=== PATIENT | female | born 1995 | race African-American/Black ===

== ENCOUNTER 2020-11-17 19:31 | Inpatient (IN) | payer BC ==
[~2020-11-17] VITALS: Ht 160 cm; Wt 98.0 kg
[2020-11-17] MEDS ORDERED: LIDOCAINE HCL 1% 20ML VIAL (Pyxis) INJ INFIL SCH (20:00)
[2020-11-17] MEDS ORDERED: MISOPROSTOL 100MCG TABLET VG SCH (20:00)
[2020-11-17] MEDS ORDERED: METHYLERGONOVINE MALEATE 0.2 MG/ML IM PRN (20:00)
[2020-11-17] MEDS ORDERED: BUTORPHANOL TARTRATE 2 MG/ML VIAL IM PRN (23:15)
[2020-11-17] MEDS: LACTATED RINGERS 1,000 ML IV SCH (23:18)
[2020-11-17] MEDS: DEXT 5%/LR + PITOCIN 20UNITS/L 1,000 ML IV SCH (23:31)
[2020-11-17 23:38] LABS: CLARITY URINE CLEAR (CLEAR); COLOR URINE YELLOW (YELLOW); KETONES URINE TRACE (NEGATIVE); LEUKOCYTE ESTERASE URINE 1+ (NEGATIVE); NITRITE URINE NEGATIVE (NEGATIVE); OCCULT BLOOD URINE NEGATIVE (NEGATIVE); PROTEIN URINE TRACE (NEGATIVE); SPECIFIC GRAVITY URINE 1.023 (1.005-1.030)
[2020-11-17 23:39] LABS: BASOPHILS % 0.7 % (0.0-2.0); EOSINOPHILS % 2.1 % (0.0-5.0); HEMOGLOBIN. 12.4 g/dL (12.0-16.0); LYMPHOCYTES % 21.2 % (20.0-50.0); MEAN CORPUSCULAR HEMOGLOBIN 26.4 pg (28.0-32.0); MEAN CORPUSCULAR VOLUME 80.9 fL (81.0-99.0); MEAN PLATELET VOLUME 7.9 fl (7.4-10.4); MONOCYTES % 7.1 % (2.0-8.0); NEUTROPHILS % 68.9 % (40.0-76.0); PLATELET 350 x1000/uL (130-400); RED BLOOD CELL COUNT 4.69 mill/uL (4.2-5.4); RED CELL DISTRIBUTION WIDTH 15.9 % (11.6-14.6)
[2020-11-17 23:48] LABS: INR 0.9; PARTIAL THROMBOPLASTIN TIME 30.4 sec (23.4-31.0); PROTHROMBIN TIME 9.6 sec (9.6-11.0)
[2020-11-18 00:04] LABS: METHADONE URINE SCREEN NEGATIVE (NEGATIVE)
[2020-11-18 00:06] LABS: *AMPHETAMINES SCREEN URINE NEGATIVE (NEGATIVE); *BARBITURATES SCREEN URINE NEGATIVE (NEGATIVE); *BENZODIAZEPINES SCREEN URINE NEGATIVE (NEGATIVE); *COCAINE SCREEN URINE NEGATIVE (NEGATIVE); CANNABINOID URINE SCREEN NEGATIVE (NEGATIVE); PHENCYCLIDINE URINE SCREEN NEGATIVE (NEGATIVE)
[2020-11-18 00:13] LABS: OPIATES URINE SCREEN PRESUMTIVE POSITIVE (NEGATIVE)
[2020-11-18 00:36] LABS: HEPATITIS B SURFACE ANTIGEN NEGATIVE
[2020-11-18] MEDS: BUTORPHANOL TARTRATE 2 MG/ML VIAL IV PRN ×2 (02:11→05:12)
[2020-11-18] MEDS: LACTATED RINGERS 1,000 ML IV SCH ×3 (03:22→16:47)
[2020-11-18] MEDS ORDERED: ROPIVACAINE HCL 2MG/ML (0.2%) 100ML BAG IR ONE (11:15)
[2020-11-18] MEDS ORDERED: BUPIVACAINE HCL/PF 0.25% (2.5MG/ML) 10ML ONE (11:22)
[2020-11-18] MEDS ORDERED: FENTANYL CITRATE/PF 50MCG/ML 2ML VIAL ONE (11:22)
[2020-11-18] MEDS ORDERED: SODIUM CHLORIDE 0.9% 10ML VIAL ONE ×2 (11:22→11:23)
[2020-11-18] MEDS ORDERED: EPHEDRINE SULFATE 50MG/ML VIAL ONE (11:23)
[2020-11-18] MEDS ORDERED: ROPIVACAINE HCL/PF EPIDURAL 200 ML EPI SCH (11:45)
[2020-11-18] MEDS: DEXT 5%/LR + PITOCIN 20UNITS/L 1,000 ML IV SCH (21:41)
[2020-11-18] MEDS ORDERED: GLYCERIN/WITCH HAZEL LEAF MEDICATED PAD TOP PRN (22:00)
[2020-11-18] MEDS ORDERED: DIPHENHYDRAMINE 25MG CAPSULE PO PRN (22:00)
[2020-11-18] MEDS ORDERED: LANOLIN OINT 7GM TUBE TOP PRN (22:00)
[2020-11-18] MEDS ORDERED: IBUPROFEN 400MG TABLET PO PRN (22:00)
[2020-11-18] MEDS ORDERED: HEMORRHOIDAL SUPP PR PRN (22:00)
[2020-11-18] MEDS ORDERED: BISACODYL 10MG SUPP PR PRN (22:00)
[2020-11-18] MEDS ORDERED: DEXT 5%/LR + PITOCIN 20UNITS/L 1,000 ML IV SCH (22:00)
[2020-11-18] MEDS ORDERED: ACETAMINOPHEN WITH CODEINE 300/30MG TABLET PO PRN (22:00)
[2020-11-18] MEDS ORDERED: BENZOCAINE/LANOLIN/ALOE VERA SPRAY TOP PRN (22:00)
[2020-11-18] MEDS: IBUPROFEN 800MG TABLET PO PRN (22:25)
[2020-11-18 23:00] VITALS: BP 122/71
[2020-11-18 23:30] VITALS: BP 120/54
[2020-11-19] VITALS: BP 111/58
[2020-11-19 04:20] VITALS: BP 98/53
[2020-11-19 06:31] LABS: BASOPHILS % 0.6 % (0.0-2.0); EOSINOPHILS % 0.2 % (0.0-5.0); HEMATOCRIT. 34.4 % (36.0-48.0); HEMOGLOBIN. 11.5 g/dL (12.0-16.0); LYMPHOCYTES % 14.8 % (20.0-50.0); MEAN CORPUSCULAR HEMOGLOBIN 27.2 pg (28.0-32.0); MEAN CORPUSCULAR VOLUME 81.2 fL (81.0-99.0); MEAN PLATELET VOLUME 7.9 fl (7.4-10.4); MONOCYTES % 6.9 % (2.0-8.0); NEUTROPHILS % 77.5 % (40.0-76.0); PLATELET 297 x1000/uL (130-400); RED BLOOD CELL COUNT 4.23 mill/uL (4.2-5.4); RED CELL DISTRIBUTION WIDTH 16.1 % (11.6-14.6)
[2020-11-19 07:30] VITALS: BP 107/52
[2020-11-19] MEDS: FERROUS SULFATE 325MG TABLET PO SCH ×3 (07:30→17:30)
[2020-11-19] MEDS: PRENATAL VIT/FE FUMARATE/FA TABLET PO SCH (09:00)
[2020-11-19 15:33] VITALS: BP 104/60
[2020-11-19 20:00] VITALS: BP 100/57
[2020-11-19] MEDS: MAGNESIUM/ALUMINUM HYDROXIDE/SIMETHICONE 30ML UDC PO SCH (20:24)
[2020-11-19] MEDS: SIMETHICONE 80MG TABLET CHEW PO SCH (20:24)
[2020-11-19] MEDS: IBUPROFEN 800MG TABLET PO PRN (20:28)
[2020-11-19] MEDS ORDERED: DOCUSATE SODIUM 100MG CAPSULE PO SCH (21:00)
[2020-11-20] MEDS: IBUPROFEN 800MG TABLET PO PRN (03:59)
[2020-11-20 04:00] VITALS: BP 101/55
[2020-11-20 07:10] LABS: BASOPHILS % 0.3 % (0.0-2.0); EOSINOPHILS % 1.4 % (0.0-5.0); HEMATOCRIT. 31.9 % (36.0-48.0); HEMOGLOBIN. 10.6 g/dL (12.0-16.0); LYMPHOCYTES % 21.1 % (20.0-50.0); MEAN CORPUSCULAR HEMOGLOBIN 26.9 pg (28.0-32.0); MEAN CORPUSCULAR VOLUME 80.9 fL (81.0-99.0); MEAN PLATELET VOLUME 7.8 fl (7.4-10.4); MONOCYTES % 5.8 % (2.0-8.0); NEUTROPHILS % 71.4 % (40.0-76.0); PLATELET 266 x1000/uL (130-400); RED BLOOD CELL COUNT 3.94 mill/uL (4.2-5.4); RED CELL DISTRIBUTION WIDTH 16.1 % (11.6-14.6)
[2020-11-20 08:00] VITALS: BP 104/52
[2020-11-20] MEDS: MAGNESIUM/ALUMINUM HYDROXIDE/SIMETHICONE 30ML UDC PO SCH (09:49)
[2020-11-20] MEDS: PRENATAL VIT/FE FUMARATE/FA TABLET PO SCH (09:49)
[2020-11-20] MEDS: FERROUS SULFATE 325MG TABLET PO SCH (09:50)
[2020-11-20] MEDS: SIMETHICONE 80MG TABLET CHEW PO SCH (09:50)
== END 2020-11-20 12:50 | disposition home or self-care (01) | DRG 807 ==
LOC: OBSVTOIN 19:31 → 8 EST LDRP 19:31 → 8EST 11-18 22:50
PROVIDERS: ADMIT Obstetrics & Gynecology; ATTEND Obstetrics & Gynecology
PROC: 10E0XZZ Delivery of Products of Conception, External Approach (ICD-10-PCS; principal; 2020-11-18)
PROC: 0KQM0ZZ Repair Perineum Muscle, Open Approach (ICD-10-PCS; 2020-11-18)
PROC: 3E033VJ Introduction of Other Hormone into Peripheral Vein, Percutaneous Approach (ICD-10-PCS; 2020-11-18)
PROC: 3E0R3BZ Introduction of Anesthetic Agent into Spinal Canal, Percutaneous Approach (ICD-10-PCS; 2020-11-19)
PROC: 00HU33Z Insertion of Infusion Device into Spinal Canal, Percutaneous Approach (ICD-10-PCS; 2020-11-19)
DX: O48.0 Post-term pregnancy (principal); Z37.0 Single live birth; O70.1 Second degree perineal laceration during delivery; Z3A.40 40 weeks gestation of pregnancy
CPT/HCPCS: 36415; 80305; 80361; 81003; 85025; 86592; 86703; 86762; 86850; 86900; 87340; 99281; J0595; J2590; J2795; J3010; J3490; A4315

== ENCOUNTER 2021-10-11 17:36 | Emergency (ER) | payer BC ==
[~2021-10-11] VITALS: Ht 160 cm; Wt 94.0 kg
[2021-10-11 18:45] VITALS: BP 138/86
[2021-10-11] MEDS ORDERED: IBUP-2028 MT (20:40)
[2021-10-11] MEDS: IBUPROFEN 400MG TABLET PO ONE (21:30)
== END 2021-10-12 00:03 | disposition home or self-care (01) ==
LOC: ER 17:36
DX: U07.1 COVID-19 (principal)
CPT/HCPCS: 99283; C9803; U0003; U0005